=== PATIENT | female | born 1975 | race Caucasian/White ===

== ENCOUNTER 2020-12-14 11:46 | Emergency (ER) | payer SELFPAY ==
[~2020-12-14] VITALS: Ht 175.3 cm; Wt 111.4 kg
[2020-12-14 13:19] LABS: COVID AG,FIA SOURCE NASOPHARYNGEAL
[2020-12-14 13:41] LABS: BASOPHILS % (AUTO) 0.2 % (0.0-2.0); EOSINOPHILS % (AUTO) 0.9 % (1.0-6.0); HEMOGLOBIN 8.9 g/dL (12.0-16.0); LYMPHOCYTES # (AUTO) 2.3 K/uL (1.0-4.8); LYMPHOCYTES % (AUTO) 20.5 % (22.0-44.0); MEAN CORPUSCULAR HEMOGLOBIN 26.2 pg (26.0-34.0); MEAN CORPUSCULAR HGB CONC 31.9 G/dL (31.0-37.0); MEAN CORPUSCULAR VOLUME 82 fL (80-100); MONOCYTES # (AUTO) 0.7 K/uL (0.1-1.0); MONOCYTES % (AUTO) 5.9 % (2.0-9.0); NEUTROPHILS # (AUTO) 8.1 K/uL (1.8-7.7); NEUTROPHILS % (AUTO) 72.5 % (40.0-70.0); PLATELET COUNT (AUTO) 291 K/uL (150-450); RED BLOOD CELL COUNT(AUTO) 3.41 MIL/uL (4.00-5.20); RED CELL DISTRIBUTION WIDTH 16.8 % (11.5-14.5)
[2020-12-14 13:55] LABS: ANION GAP 8 mmol/L (8-16); CALCIUM, TOTAL 7.9 mg/dL (8.8-10.5); CARBON DIOXIDE 27 mmol/L (22-29); CHLORIDE 106 mmol/L (98-107); CREATININE 0.64 mg/dL (0.60-1.30); GLOMERULAR FILTR. RATE CALC > 60 mL/min (>60); GLUCOSE,RANDOM 102 mg/dL (70-110); POTASSIUM 3.3 mmol/L (3.5-5.1); SODIUM SERUM 141 mmol/L (136-145); UREA NITROGEN, BLOOD 11 mg/dL (7-18)
[2020-12-14 14:02] LABS: INR 0.9 (0.9-1.1); PROTHROMBIN TIME 9.8 SEC (9.4-11.6)
[2020-12-14 14:11] LABS: B-TYPE NATRIURETIC PEPTIDE 41 pg/mL (0-100)
[2020-12-14 14:12] LABS: ALANINE AMINOTRANSFERASE 20 U/L (12-78); ALBUMIN 2.3 g/dL (3.4-5.0); ALKALINE PHOSPHATASE 101 U/L (46-116); ASPARTATE AMINOTRANSFERASE 12 U/L (15-37); BILIRUBIN,TOTAL 0.1 mg/dL (0.1-1.0); CREATINE KINASE, TOTAL ONLY 33 U/L (26-192); FREE T4 (FREE THYROXINE) 1.17 ng/dL (0.76-1.46); HCG,QUANTITATIVE < 1 mIU/mL (0-6); THYROID STIMULATING HORMONE 1.55 uIU/mL (0.36-3.74); TOTAL PROTEIN, SERUM 6.6 g/dL (6.4-8.2)
[2020-12-14 15:44] LABS: APPEARANCE,URINE CLOUDY (CLEAR); BILIRUBIN,URINE NEGATIVE (NEGATIVE); GLUCOSE, URINE (UA) NEGATIVE (NEGATIVE); KETONES,URINE TRACE mg/dL (NEGATIVE); LEUKOCYTE ESTERASE ,URINE TRACE (NEGATIVE); NITRATE,URINE NEGATIVE (NEGATIVE); OCCULT BLOOD,URINE LARGE (NEGATIVE); PROTEIN,URINE POS 1+ (NEGATIVE)
[2020-12-14 15:58] LABS: BACTERIA,URINE Rare /HPF (None Seen); RBC,URINE >100 /HPF (0-2); SQUAMOUS EPITHELIAL CELL,UR Rare /LPF (None Seen)
[2020-12-14] MEDS ORDERED: AZITHROMYCIN 500 MG TABLET PO ONE (16:00)
[2020-12-14] MEDS ORDERED: POTASSIUM CHLORIDE 20 MEQ ER TABLET PO ONE (16:00)
[2020-12-14 16:45] VITALS: BP 119/70
== END 2020-12-14 17:01 | disposition home or self-care (01) ==
LOC: EMS 11:48
DX: N93.8 Other specified abnormal uterine and vaginal bleeding (principal); D64.9 Anemia, unspecified; J18.9 Pneumonia, unspecified organism; Z20.822 Contact with and (suspected) exposure to COVID-19
CPT/HCPCS: 36415; 71045; 80053; 81001; 82550; 83880; 84439; 84443; 84484; 84702; 85025; 85610; 85730; 87426; 93005; 99285; Q9967; U0003